=== PATIENT | male | born 1990 | race Caucasian/White ===

== ENCOUNTER 2017-01-06 08:17 | Emergency (ER) | payer OTHER ==
[~2017-01-06] VITALS: Ht 177.8 cm; Wt 86.2 kg
[~2017-01-06 08:17] MED LIST: CIPRO500 MG PO; NORCO 5-325 TA1 EACH PO
[2017-01-06 08:41] LABS: HEMATOCRIT 44.4 % (42.0-52.0); HEMOGLOBIN 15.2 gm/dL (14.0-18.0); MCH 30.1 pg (26.0-34.0); MCHC 34.2 g/dL (28.0-37.0); MCV 87.9 fL (80.0-100.0); PLATELET COUNT 202 thou/uL (150-400); RBC 5.05 mil/uL (4.50-6.00); RDW 13.1 % (10.5-14.5); WBC 10.1 thou/uL (4.0-11.0)
[2017-01-06 08:43] LABS: MANUAL DIFF YES
[2017-01-06 08:53] LABS: CALCIUM 8.4 mg/dL (8.5-10.1); CREATININE 0.9 mg/dL (0.7-1.3); POTASSIUM 3.5 mmol/L (3.5-5.1)
[2017-01-06 08:58] LABS: ALBUMIN 3.2 g/dL (3.4-5.0); TOTAL BILIRUBIN 0.3 mg/dL (<0.1-1.0); TOTAL PROTEIN 7.1 g/dL (6.4-8.2)
[2017-01-06 09:16] LABS: ANISOCYTOSIS SLIGHT; TOTAL CELL COUNT 100
[2017-01-06 11:15] VITALS: BP 99/65
[2017-01-06] MEDS ORDERED: NORCO 5-325 TA1 EACH PO (11:40)
[2017-01-06] MEDS ORDERED: FLAGYL500 MG PO (11:40)
[2017-01-06] MEDS ORDERED: ZOFRAN ODT4 MG PO (11:40)
== END 2017-01-06 11:57 ==
LOC: ER 08:17
PROVIDERS: Emergency Medicine
DX: K52.9 Noninfective gastroenteritis and colitis, unspecified (principal); F17.210 Nicotine dependence, cigarettes, uncomplicated

== ENCOUNTER 2017-06-17 11:38 | Emergency (ER) | payer OTHER ==
[~2017-06-17] VITALS: Ht 177.8 cm; Wt 90.7 kg
[~2017-06-17 11:38] MED LIST changes: +FLAGYL500 MG PO; +ZOFRAN ODT4 MG PO
[2017-06-17] MEDS ORDERED: NOHOMEMEDICATIONS (13:37)
[2017-06-17] MEDS ORDERED: KEFLEX500 MG PO (14:16)
[2017-06-17] MEDS ORDERED: IBUPROFEN 600600 M1 PO (14:16)
[2017-06-17 14:28] VITALS: BP 135/68
== END 2017-06-17 15:06 | disposition home or self-care (01) ==
LOC: ER 11:38
DX: M79.642 Pain in left hand (principal); F17.210 Nicotine dependence, cigarettes, uncomplicated; F10.99 Alcohol use, unspecified with unspecified alcohol-induced disorder; V28.0XXA Motorcycle driver injured in noncollision transport accident in nontraffic accident, initial encounter; Y93.55 Activity, bike riding; Y92.89 Other specified places as the place of occurrence of the external cause; Y99.8 Other external cause status

== ENCOUNTER 2018-04-16 13:33 | Emergency (ER) | payer OTHER ==
[~2018-04-16] VITALS: Ht 177.8 cm; Wt 87.1 kg
[~2018-04-16 13:33] MED LIST changes: +IBUPROFEN 600600 M1 PO; +KEFLEX500 MG PO; +NOHOMEMEDICATIONS
[2018-04-16] MEDS ORDERED: KEFLEX500 M1 PO (15:06)
[2018-04-16] MEDS ORDERED: NORCO 5-325 TA1 EACH PO (15:06)
[2018-04-16 15:35] VITALS: BP 130/56
== END 2018-04-16 15:30 | disposition home or self-care (01) ==
LOC: ER 13:33
DX: S01.311A Laceration without foreign body of right ear, initial encounter (principal); S09.90XA Unspecified injury of head, initial encounter; F17.210 Nicotine dependence, cigarettes, uncomplicated; W18.09XA Striking against other object with subsequent fall, initial encounter; Y93.89 Activity, other specified; Y92.89 Other specified places as the place of occurrence of the external cause; Y99.8 Other external cause status

== ENCOUNTER 2019-07-16 10:59 | Emergency (ER) | payer OTHER ==
[~2019-07-16] VITALS: Ht 177.8 cm; Wt 95.3 kg
[~2019-07-16 10:59] MED LIST changes: +BACTRIM DS TAB1 EACH PO; +KEFLEX500 M1 PO
[2019-07-16] MEDS ORDERED: MEDROLDOSEPACK PO (12:09)
[2019-07-16] MEDS ORDERED: LIDOCAINE PAIN1 EACH TOP (12:09)
[2019-07-16] MEDS ORDERED: CYCLOBENZAPRINE5 MG PO (12:09)
[2019-07-16] MEDS ORDERED: NORCO 5-325 TA1 EAC1 PO (12:09)
[2019-07-16 12:20] VITALS: BP 118/72
== END 2019-07-16 12:27 | disposition home or self-care (01) ==
LOC: ER 10:59
DX: M54.5 Low back pain (principal); M62.830 Muscle spasm of back; F17.210 Nicotine dependence, cigarettes, uncomplicated

== ENCOUNTER 2020-08-25 10:41 | Emergency (ER) | payer OTHER ==
[~2020-08-25] VITALS: Ht 177.8 cm; Wt 86.2 kg
[~2020-08-25 10:41] MED LIST changes: +CYCLOBENZAPRINE5 MG PO; +LIDOCAINE PAIN1 EACH TOP; +MEDROLDOSEPACK PO; +NORCO 5-325 TA1 EAC1 PO
[2020-08-25 10:42] VITALS: BP 103/81
[2020-08-25] MEDS ORDERED: BACTRIM DS TAB1 EACH PO (11:19)
[2020-08-25] MEDS ORDERED: NORCO 5-325 TA1 EAC2 PO (11:45)
== END 2020-08-25 11:48 | disposition home or self-care (01) ==
LOC: ER 10:41
DX: L02.11 Cutaneous abscess of neck (principal); F17.210 Nicotine dependence, cigarettes, uncomplicated

== ENCOUNTER 2021-04-10 10:29 | Emergency (ER) | payer OTHER ==
[~2021-04-10] VITALS: Ht 177.8 cm; Wt 83.9 kg
[~2021-04-10 10:29] MED LIST changes: +NORCO 5-325 TA1 EAC2 PO
[2021-04-10] MEDS ORDERED: NORCO5 PO (13:45)
[2021-04-10 13:52] VITALS: BP 114/87
== END 2021-04-10 13:54 | disposition home or self-care (01) ==
LOC: ER 10:29
DX: M25.511 Pain in right shoulder (principal); F17.210 Nicotine dependence, cigarettes, uncomplicated; Z79.891 Long term (current) use of opiate analgesic; Z79.899 Other long term (current) drug therapy